=== PATIENT | female | born 1990 | race Caucasian/White ===

== ENCOUNTER → 2019-08-23 10:16 | Outpatient (BNVA) | payer SELFPAY | PROVIDERS: PCP Registered Nurse; Visit Provider Nurse Practitioner Family | DX: F41.9 Anxiety disorder, unspecified (principal); I10 Essential (primary) hypertension; E11.65 Type 2 diabetes mellitus with hyperglycemia; E78.2 Mixed hyperlipidemia | CPT/HCPCS: 80048; 80061; 82044; 83036 ==

== ENCOUNTER → 2019-08-28 11:14 | Outpatient (BNVA) | payer SELFPAY | PROVIDERS: PCP Registered Nurse; Visit Provider Nurse Practitioner Family | DX: Z34.90 Encounter for supervision of normal pregnancy, unspecified, unspecified trimester (principal); Z3A.01 Less than 8 weeks gestation of pregnancy | CPT/HCPCS: 81025 ==

== ENCOUNTER 2019-09-06 13:05 | Emergency (ER) | payer SELFPAY ==
[2019-09-06 13:16] VITALS: BP 200/147; PULSE 138; RESP 18; TEMP 37.3; O2SAT 94; BMI 49.2
[2019-09-06 13:43] VITALS: O2SAT 98
--- NOTE | 2019-09-06 13:48 | US_ITS ---
WS: [id number] EARLY OBSTETRICAL ULTRASOUND (<14 WEEKS). HISTORY: vaginal bleeding COMPARISON: None available. Extremely limited evaluation of the uterus and the endometrium and adnexa predominantly due to body h abitus. Uterus is anteverted. No intrauterine gestation is identified. No gestational sac. No adnexal masses or free fluid. US/US OB <=14 wk fetus w transvag IMPRESSION: 1. Extremely limited evaluation of the uterus and adnexal structures. 2. No intrauterine gestation is identified. No ectopic is identified. 3. Recommend serial correlation with beta hCG levels and possible ultrasound i f necessary to exclude ectopic. Differential includes complete spontaneous abor tion, ectopic or too early to visualize.
--- NOTE | 2019-09-06 13:55 | ED_ITS ---
HPI - Abdominal Pain General: Chief Complaint: Abdominal Pain Stated Complaint: cramping Time Seen by Provider: 09/06/19 13:48 Source: patient Mode of arrival: ambulatory Limitations: no limitations History of Present Illness: HPI narrative: Patient comes in with some low back pain. Patient is concerned due to some spotting she had approximately 3 days ago and then again this morning. Patient is approximately 7 weeks . Patient appears well. Patient appears in no acute distress. Patient reports previous history of 3 miscarriages. Patient has had 2 live births. Patient reports history of anxiety and hypertension. Review of Systems General: Reports: 10 or more systems reviewed and unremarkable except in HPI and below Musc: Reports: back pain PFSH ED PFSH: Statuses (acute, chronic, etc) shown below reflect problem list status as previously entered and may not be historically accurate Social History Smoking and tobacco status: never smoked Household members: spouse Female Reproductive History: : 5 Physical Exam Const: COMMON NORMALS: no apparent distress and oriented x3 GENERAL APPEARANCE: cooperative HENMT: COMMON NORMALS: normocephalic, external ears normal, EAC's normal, TM's normal bilaterally and external nose normal HEAD & SCALP: normal to inspection and normocephalic FACE & SINUS: normal facial exam NOSE: external nose normal GENERAL EAR: hearing not grossly impaired EXTERNAL EAR: Yes external ears normal EXTERNAL AUDITORY CANAL: EAC's normal TYMPANIC MEMBRANE: TM's normal bilaterally MOUTH: oral and palatal mucosa normal THROAT: posterior oropharynx normal Eye: COMMON NORMALS: PERRL and EOMs intact bilaterally PUPIL: Yes PERRL Neck/C-Spine: COMMON NORMALS: full ROM and no lymphadenopathy Lymph: LYMPHATIC: no lymphedema noted Chest: COMMONS NORMALS: inspection of chest normal and palpation of chest normal Resp: COMMON NORMALS: normal respiratory effort and clear to auscultation b ilaterally AUSCULTATION: clear to auscultation bilaterally Cardio: COMMON NORMALS: regular rate and regular rhythm RATE: regular rate RHYTHM: regular rhythm GI: COMMON NORMALS: normal to inspection, nondistended, normoactive bowel sounds and non-tender : COMMON NORMALS: Yes no CVA tenderness BLADDER/KIDNEY EXAM: Yes no CVA tenderness Back/Pelvis: COMMON NORMALS: no CVA tenderness LUMBAR SPINE/LOWER BACK: Yes paraspinal muscle tenderness Extremity: COMMON NORMALS: normal to inspection GENERAL: No edema Neuro: COMMON NORMALS: oriented x3, moves all extremities and no focal motor deficits Psych: COMMON NORMALS: mental status grossly normal and cooperative Skin: COMMON NORMALS: no rashes or lesions noted GENERAL SKIN EXAM: no rashes or lesions noted Course Vital Signs: Vital signs: Vital Signs Temperature 99.1 F 09/06/19 13:16 Pulse Rate 138 H 09/06/19 13:16 Respiratory Rate 18 09/06/19 13:16 Blood Pressure 200/147 09/06/19 13:16 Pulse Oximetry 98 09/06/19 13:43 MDM - Abdominal Pain MDM Narrative: Medical decision making narrative: Patient comes in today with complaints of low back pain and vaginal spotting. Patient appears well. Patient's abdomen is soft and nontender. Patient has no CVA tenderness. Or even lungs are clear to auscultation. Skin is warm and dry. Vital signs are stable except for some elevation in the blood pressure. Patient is 7 weeks . Differential diagnosis includes uncontrolled hypertension, UTI, threatened miscarriage, spontaneous miscarriage. Laboratory values indicated urine that was contaminated with red blood cells. Ultrasound noted no intrauterine or ectopic . hCG level was 700. Rh typing was a positive. Reviewed exam and discussed the likelihood of a miscarriage with recommendations for further treatment and evaluation with primary care in 3 to 5 days. Patient reported understanding as this was not her first miscarriage but she does have 2 live births at home that she has very gracious for. Patient reports understanding of care plan and need for follow-up or return to the ER. Lab Data: Labs: Lab Results 09/06/19 09/06/19 09/06/19 Range/Units 13:31 13:31 13:50 WBC 7.7 (4.0-10.0) 10^3/ uL RBC 4.76 (4.1-5.3) 10^6/u L Hgb 11.2 L (11.5-15.3) g/dL Hct 36.0 L (37.0-47.0) % MCV 75.6 L (81-99) fL MCH 23.5 L (28.0-34.0) pg MCHC 31.1 (30.0-36.0) g/dL RDW 15.2 H (12.1-15.1) % Plt Count 266 (130-400) 10^3/c mm MPV 9.2 (7.4-10.4) fL Neut % (Auto) 66.5 % Lymph % (Auto) 26.2 % [place] % (Auto) 5.1 % Eos % (Auto) 1.3 % Baso % (Auto) 0.5 % Neut # (Auto) 5.1 (1.8-7.7) 10^3/u L Lymph # (Auto) 2.0 (0.8-4.8) 10^3/u L [place] # (Auto) 0.4 (0.2-0.9) 10^3/u L Eos # (Auto) 0.1 (0.0-0.8) 10^3/u L Baso # (Auto) 0.0 (0.0-0.1) 10^3/u L Nucleated RBC % (a uto) 0 % Nucleated RBCs # 0.0 /100WBC Sodium (136-145) mmol/L Potassium (3.5-5.1) mmol/L Chloride (98-107) mmol/L Carbon Dioxide (22-29) mmol/L Anion Gap (5-19) BUN (6-20) mg/dL Creatinine (0.5-0.9) mg/dL GFR Calculation (90-130) mL/min Glucose (74-109) mg/dL Calcium (8.5-10.5) mg/dL Total Bilirubin (0.15-1.2) mg/dL AST (0-32) U/L ALT (0-33) U/L Alkaline Phosphata se (35-105) IU/L Total Protein (6.6-8.7) g/dL Albumin (3.5-5.2) g/dL Globulin (1.3-4.6) g/dL Ser , Keily i-Qnt mIU/mL Urine Color Cancelled Yellow Urine Appearance Cancelled Sl hazy Urine pH Cancelled 5 Ur Specific Gravit y Cancelled 1.020 Urine Protein Cancelled Neg Urine Glucose (UA) Cancelled 2+ Urine Ketones Cancelled 2+ H Urine Occult Blood Cancelled 2+ H Urine Nitrate Cancelled Negative Urine Bilirubin Cancelled 1+ H Prot Sulfosalicyli c Acd Cancelled Urine Urobilinogen Cancelled 1 H Ur Leukocyte Edda ase Cancelled Negative Urine RBC 5-10 H (0-2) /hpf Urine WBC 10-15 H (0-5) /hpf Ur Squamous Epith Cells 15-25 H (0-5) Amorphous Sediment Trace Urine Bacteria 1+ H (NONE) Hyaline Casts Rare Urine Mucus 1+ Blood Type 09/06/19 09/06/19 Range/Units 13:50 13:50 WBC (4.0-10.0) 10^3/ uL RBC (4.1-5.3) 10^6/u L Hgb (11.5-15.3) g/dL Hct (37.0-47.0) % MCV (81-99) fL MCH (28.0-34.0) pg MCHC (30.0-36.0) g/dL RDW (12.1-15.1) % Plt Count (130-400) 10^3/c mm MPV (7.4-10.4) fL Neut % (Auto) % Lymph % (Auto) % [place] % (Auto) % Eos % (Auto) % Baso % (Auto) % Neut # (Auto) (1.8-7.7) 10^3/u L Lymph # (Auto) (0.8-4.8) 10^3/u L [place] # (Auto) (0.2-0.9) 10^3/u L Eos # (Auto) (0.0-0.8) 10^3/u L Baso # (Auto) (0.0-0.1) 10^3/u L Nucleated RBC % (a uto) % Nucleated RBCs # /100WBC Sodium 134 L (136-145) mmol/L Potassium 3.5 (3.5-5.1) mmol/L Chloride 98 (98-107) mmol/L Carbon Dioxide 20 L (22-29) mmol/L Anion Gap 19.5 H (5-19) BUN 10 (6-20) mg/dL Creatinine 0.5 (0.5-0.9) mg/dL GFR Calculation 144.9 H (90-130) mL/min Glucose 266 H (74-109) mg/dL Calcium 9.5 (8.5-10.5) mg/dL Total Bilirubin 0.2 (0.15-1.2) mg/dL AST 38 H (0-32) U/L ALT 32 (0-33) U/L Alkaline Phosphata se 67 (35-105) IU/L Total Protein 6.7 (6.6-8.7) g/dL Albumin 4.6 (3.5-5.2) g/dL Globulin 2.1 (1.3-4.6) g/dL Ser , [place] i-Qnt 728.80 mIU/mL Urine Color Urine Appearance Urine pH Ur Specific Gravit y Urine Protein Urine Glucose (UA) Urine Ketones Urine Occult Blood Urine Nitrate Urine Bilirubin Prot Sulfosalicyli c Acd Urine Urobilinogen Ur Leukocyte Edda ase Urine RBC (0-2) /hpf Urine WBC (0-5) /hpf Ur Squamous Epith Cells (0-5) Amorphous Sediment Urine Bacteria (NONE) Hyaline Casts Urine Mucus Blood Type A Positive Discharge Plan Discharge Patient Disposition: Home, Self-Care Clinical Impression: Miscarriage Condition: Stable Prescriptions: New hydrocodone-acetaminophen 5-325 mg tablet 1 tab PO Q6H PRN (Reason: pain) Qty: 7 RF: 0 No Action metformin 500 mg tablet 500 mg PO DAILY Qty: 30 RF: 1 lisinopril 20 mg Tablet 20 mg PO DAILY RF: 0 Prozac 20 mg Capsule 20 mg PO BID RF: 0 prenat.vits,zenon,wxa-ymld-nhgen Tablet 1 tab PO DAILY RF: 0 Discharge Orders: Discharge Order (Routine); Ordered 09/06/19 Ordered By: Denton Noel Referrals: Monika Marinelli FNP [Primary Care Provider] - Discharge Diet: Usual diet Discharge Activity: Resume usual activity Patient Instructions: Spontaneous Miscarriage (ED) Activity Restrictions/Additional Instructions: Drink plenty of fluids Light activity Return to ER for high fever, bleeding through more than 1 pad in thirty minutes Follow-up with primary care in one week for recheck on Lab Coding Level of Care Code ED 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
[2019-09-06 14:02] LABS: Basophils % 0.5 %; Eosinophils # 0.1 10^3/uL (0.0-0.8); Eosinophils % 1.3 %; Hemoglobin 11.2 g/dL (11.5-15.3); Lymphocytes % 26.2 %; Mean Corpuscular HGB Conc 31.1 g/dL (30.0-36.0); Mean Corpuscular Hemoglobin 23.5 pg (28.0-34.0); Mean Corpuscular Volume 75.6 fL (81-99); Mean Platelet Volume 9.2 fL (7.4-10.4); Monocytes # 0.4 10^3/uL (0.2-0.9); Monocytes % 5.1 %; Neutrophils # 5.1 10^3/uL (1.8-7.7); Neutrophils % 66.5 %; Nucleated Red Blood Cells % 0 %; Platelet Count 266 10^3/cmm (130-400); Red Blood Count 4.76 10^6/uL (4.1-5.3); Red Cell Distribution Width 15.2 % (12.1-15.1); White Blood Count 7.7 10^3/uL (4.0-10.0)
[2019-09-06 14:36] LABS: Alanine Aminotransferase 32 U/L (0-33); Albumin Level 4.6 g/dL (3.5-5.2); Alkaline Phosphatase 67 IU/L (35-105); Anion Gap 19.5 (5-19); Aspartate Amino Transferase 38 U/L (0-32); Blood Urea Nitrogen 10 mg/dL (6-20); Calcium 9.5 mg/dL (8.5-10.5); Carbon Dioxide 20 mmol/L (22-29); Chloride 98 mmol/L (98-107); Globulin 2.1 g/dL (1.3-4.6); Glomerular Filtration Rate 144.9 mL/min (90-130); Glucose 266 mg/dL (74-109); Potassium 3.5 mmol/L (3.5-5.1); Sodium 134 mmol/L (136-145); Total Bilirubin 0.2 mg/dL (0.15-1.2); Total Protein 6.7 g/dL (6.6-8.7)
[2019-09-06 14:49] LABS: Bilirubin Urine 1+ (NEGATIVE); Blood Urine 2+ (Negative); Glucose Urine UA 2+ (Normal); Ketones Urine 2+ (Negative); Leukocyte Esterase Urine Negative (Negative); Nitrate Urine Negative (Negative); Protein Urine Neg (Negative); Urine Appearance SL Hazy (CLEAR); Urine Color Yellow (Yellow); Urobilinogen Urine 1 mg/dL (Negative); pH Urine 5 (5-7)
[2019-09-06 14:52] LABS: Hyaline Casts Urine RARE; Mucus Urine 1+
[2019-09-06] MEDS: morphine 4 mg/mL SDV 1 mL 2 MG IVP (14:52)
[2019-09-06] MEDS: ondansetron 2 mg/ML SDV 2 mL 4 MG IVP (14:52)
[2019-09-06 14:53] LABS: Amorphous Sediment Urine TRACE; Bacteria Urine 1+
[2019-09-06 14:54] LABS: Add Urine Culture? No; Squamous Epithelial Cell Urine 15-25 (0-5)
[2019-09-06 16:10] VITALS: BP 153/103; PULSE 109; RESP 16; O2SAT 97
== END 2019-09-06 16:10 | disposition home or self-care (01) ==
PROVIDERS: Emergency Provider Nurse Practitioner Family; PCP Registered Nurse
DX: O03.9 Complete or unspecified spontaneous abortion without complication (principal)
CPT/HCPCS: 76801; 76817; 80053; 81001; 84702; 85025; 86900; 96374; 99283; A9270; J2270; J2405

== ENCOUNTER → 2019-09-12 10:13 | Outpatient (BNVA) | payer SELFPAY | PROVIDERS: PCP Registered Nurse; Visit Provider Nurse Practitioner Family | DX: O03.9 Complete or unspecified spontaneous abortion without complication (principal) | CPT/HCPCS: 36415; 84702 ==

== ENCOUNTER → 2019-10-30 09:42 | Outpatient (BNVA) | payer SELFPAY | PROVIDERS: PCP Registered Nurse; Visit Provider Registered Nurse | DX: I10 Essential (primary) hypertension (principal); F43.23 Adjustment disorder with mixed anxiety and depressed mood; E11.65 Type 2 diabetes mellitus with hyperglycemia; E66.01 Morbid (severe) obesity due to excess calories; Z68.42 Body mass index [BMI] 45.0-49.9, adult | CPT/HCPCS: 80053; 83036; 85025 ==

== ENCOUNTER → 2019-11-29 10:27 | Outpatient (BNVA) | payer SELFPAY | PROVIDERS: PCP Registered Nurse; Visit Provider Nurse Practitioner Family | DX: N92.6 Irregular menstruation, unspecified (principal) | CPT/HCPCS: 81025; 84702 ==

== ENCOUNTER → 2020-02-17 10:44 | Outpatient (BNVA) | payer SELFPAY | PROVIDERS: PCP Registered Nurse; Visit Provider Registered Nurse | DX: E11.65 Type 2 diabetes mellitus with hyperglycemia (principal); F33.2 Major depressive disorder, recurrent severe without psychotic features | CPT/HCPCS: 83036 ==

== ENCOUNTER → 2020-06-10 12:58 | Outpatient (BNVA) | payer MEDICAID, SELFPAY | PROVIDERS: PCP Registered Nurse; Visit Provider Obstetrics & Gynecology | DX: Z34.90 Encounter for supervision of normal pregnancy, unspecified, unspecified trimester (principal) | CPT/HCPCS: 81000; 81025; 83036; 84443; 84702; 86850; 86900 ==

== ENCOUNTER → 2020-06-15 11:26 | Outpatient (BNVA) | payer SELFPAY | PROVIDERS: PCP Registered Nurse; Visit Provider Obstetrics & Gynecology | DX: Z34.90 Encounter for supervision of normal pregnancy, unspecified, unspecified trimester (principal) | CPT/HCPCS: 81000 ==

== ENCOUNTER → 2020-06-22 11:47 | Outpatient (BNVA) | payer SELFPAY | PROVIDERS: PCP Registered Nurse; Visit Provider Obstetrics & Gynecology | DX: O09.891 Supervision of other high risk pregnancies, first trimester (principal); Z3A.00 Weeks of gestation of pregnancy not specified | CPT/HCPCS: 81000 ==

== ENCOUNTER → 2020-06-24 13:10 | Outpatient (BNVA) | payer MEDICAID, SELFPAY | PROVIDERS: PCP Registered Nurse; Visit Provider Nurse Practitioner Women's Health | DX: Z34.90 Encounter for supervision of normal pregnancy, unspecified, unspecified trimester (principal) | CPT/HCPCS: 80053; 81000 ==

== ENCOUNTER → 2020-07-01 14:24 | Outpatient (BNVA) | payer SELFPAY | PROVIDERS: PCP Registered Nurse; Visit Provider Obstetrics & Gynecology | DX: Z34.90 Encounter for supervision of normal pregnancy, unspecified, unspecified trimester (principal) | CPT/HCPCS: 81000 ==

== ENCOUNTER → 2020-07-07 14:19 | Outpatient (BNVA) | payer MEDICAID, SELFPAY | PROVIDERS: PCP Registered Nurse; Visit Provider Obstetrics & Gynecology | DX: O09.891 Supervision of other high risk pregnancies, first trimester (principal); O10.011 Pre-existing essential hypertension complicating pregnancy, first trimester; O24.111 Pre-existing type 2 diabetes mellitus, in pregnancy, first trimester; E11.9 Type 2 diabetes mellitus without complications; O98.819 Other maternal infectious and parasitic diseases complicating pregnancy, unspecified trimester; Z3A.00 Weeks of gestation of pregnancy not specified | CPT/HCPCS: 80307; 81000; 82570; 84156; 85027; 86592; 86762; 86803; 86850; 86900; 87086; 87340; 87806 ==

== ENCOUNTER → 2020-07-15 14:23 | Outpatient (BNVA) | payer MEDICAID, SELFPAY | PROVIDERS: PCP Registered Nurse; Visit Provider Obstetrics & Gynecology | DX: O24.111 Pre-existing type 2 diabetes mellitus, in pregnancy, first trimester (principal); Z3A.00 Weeks of gestation of pregnancy not specified | CPT/HCPCS: 81000 ==

== ENCOUNTER → 2020-07-22 15:01 | Outpatient (BNVA) | payer MEDICAID, SELFPAY | PROVIDERS: PCP Registered Nurse; Visit Provider Obstetrics & Gynecology | DX: O24.111 Pre-existing type 2 diabetes mellitus, in pregnancy, first trimester (principal); E11.9 Type 2 diabetes mellitus without complications; O09.891 Supervision of other high risk pregnancies, first trimester; Z3A.00 Weeks of gestation of pregnancy not specified | CPT/HCPCS: 81000; 87491; 87591; 88175 ==

== ENCOUNTER → 2020-07-31 10:11 | Outpatient (BNVA) | payer MEDICAID, SELFPAY | PROVIDERS: PCP Registered Nurse; Visit Provider Obstetrics & Gynecology | DX: O09.891 Supervision of other high risk pregnancies, first trimester (principal); O24.111 Pre-existing type 2 diabetes mellitus, in pregnancy, first trimester; E11.9 Type 2 diabetes mellitus without complications; O10.011 Pre-existing essential hypertension complicating pregnancy, first trimester; Z3A.00 Weeks of gestation of pregnancy not specified | CPT/HCPCS: 81000 ==

== ENCOUNTER → 2020-08-04 11:41 | Outpatient (BNVA) | payer MEDICAID, SELFPAY | PROVIDERS: PCP Registered Nurse; Visit Provider Obstetrics & Gynecology | DX: O24.111 Pre-existing type 2 diabetes mellitus, in pregnancy, first trimester (principal); E11.9 Type 2 diabetes mellitus without complications; O10.011 Pre-existing essential hypertension complicating pregnancy, first trimester; Z3A.00 Weeks of gestation of pregnancy not specified | CPT/HCPCS: 81000; 87491; 87591 ==

== ENCOUNTER → 2020-08-13 10:41 | Outpatient (BNVA) | payer MEDICAID, SELFPAY | PROVIDERS: PCP Registered Nurse; Visit Provider Obstetrics & Gynecology | DX: O24.112 Pre-existing type 2 diabetes mellitus, in pregnancy, second trimester (principal) | CPT/HCPCS: 81000 ==

== ENCOUNTER 2020-08-18 12:29 | Outpatient (CLI) | payer BC, SELFPAY ==
--- NOTE | 2020-08-18 12:52 | ECG_ITS ---
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
== END 2020-08-18 12:30 | disposition home or self-care (01) ==
LOC: RT 12:35
PROVIDERS: PCP Registered Nurse; Visit Provider Obstetrics & Gynecology
DX: O24.111 Pre-existing type 2 diabetes mellitus, in pregnancy, first trimester (principal)
CPT/HCPCS: 93005

== ENCOUNTER → 2020-08-24 15:19 | Outpatient (BNVA) | payer BC, MEDICAID, SELFPAY | PROVIDERS: PCP Registered Nurse; Visit Provider Obstetrics & Gynecology | DX: Z34.90 Encounter for supervision of normal pregnancy, unspecified, unspecified trimester (principal) | CPT/HCPCS: 81000 ==

== ENCOUNTER → 2020-09-03 14:19 | Outpatient (BNVA) | payer BC, MEDICAID, SELFPAY | PROVIDERS: PCP Registered Nurse; Visit Provider Obstetrics & Gynecology | DX: O24.112 Pre-existing type 2 diabetes mellitus, in pregnancy, second trimester (principal); Z3A.00 Weeks of gestation of pregnancy not specified | CPT/HCPCS: 81000; 83036 ==

== ENCOUNTER → 2020-09-17 14:41 | Outpatient (BNVA) | payer BC, MEDICAID, SELFPAY | PROVIDERS: PCP Registered Nurse; Visit Provider Obstetrics & Gynecology | DX: Z34.90 Encounter for supervision of normal pregnancy, unspecified, unspecified trimester (principal) | CPT/HCPCS: 81000 ==

== ENCOUNTER → 2020-10-05 15:46 | Outpatient (BNVA) | payer BC, MEDICAID, SELFPAY | PROVIDERS: PCP Registered Nurse; Visit Provider Obstetrics & Gynecology | DX: O24.112 Pre-existing type 2 diabetes mellitus, in pregnancy, second trimester (principal); O10.012 Pre-existing essential hypertension complicating pregnancy, second trimester; Z3A.00 Weeks of gestation of pregnancy not specified | CPT/HCPCS: 81000 ==

== ENCOUNTER → 2020-10-19 15:01 | Outpatient (BNVA) | payer BC, MEDICAID, SELFPAY | PROVIDERS: PCP Registered Nurse; Visit Provider Obstetrics & Gynecology | DX: Z34.90 Encounter for supervision of normal pregnancy, unspecified, unspecified trimester (principal) | CPT/HCPCS: 81000 ==

== ENCOUNTER → 2020-11-19 07:55 | Outpatient (BNVA) | payer BC, MEDICAID, SELFPAY | PROVIDERS: PCP Registered Nurse; Visit Provider Obstetrics & Gynecology | DX: O09.893 Supervision of other high risk pregnancies, third trimester (principal) | CPT/HCPCS: 81000; 85027 ==

== ENCOUNTER 2020-11-28 20:58 | Observation (INO) | payer BC, MEDICAID, SELFPAY ==
[2020-11-28] VITALS (57 sets, daily range): BP systolic 127–178; BP diastolic 68–99; PULSE 110–137; RESP 16; TEMP 36.8; O2SAT 97–99; BMI 52.3
[2020-11-28 18:57] LABS: Add Urine Microscopic? NO; Charge for UA Resulting for Rev
[2020-11-28 18:59] LABS: Basophils % 0.4 %; Eosinophils # 0.1 10^3/uL (0.0-0.8); Eosinophils % 1.1 %; Hematocrit 35.5 % (37.0-47.0); Hemoglobin 11.8 g/dL (11.5-15.3); Lymphocytes # 1.9 10^3/uL (0.8-4.8); Lymphocytes % 22.9 %; Mean Corpuscular HGB Conc 33.2 g/dL (30.0-36.0); Mean Corpuscular Hemoglobin 26.3 pg (28.0-34.0); Mean Corpuscular Volume 79.2 fL (81-99); Mean Platelet Volume 10.1 fL (7.4-10.4); Monocytes # 0.5 10^3/uL (0.2-0.9); Monocytes % 6.1 %; Neutrophils # 5.61 10^3/uL (1.8-7.7); Neutrophils % 69.3 %; Nucleated Red Blood Cells % 0 %; Platelet Count 224 10^3/cmm (130-400); Red Blood Count 4.48 10^6/uL (4.1-5.3); Red Cell Distribution Width 13.2 % (12.1-15.1); White Blood Count 8.1 10^3/uL (4.0-10.0)
[2020-11-28 19:04] LABS: Bilirubin Urine Neg (Negative); Blood Urine Neg (Negative); Glucose Urine UA Norm (Normal); Ketones Urine 2+ (Negative); Leukocyte Esterase Urine Negative (Negative); Nitrate Urine Negative (Negative); Protein Urine Neg (Negative); Urine Appearance Clear (CLEAR); Urine Color Yellow (Yellow); Urobilinogen Urine Norm (Negative); pH Urine 6 (5-7)
[2020-11-28 19:25] LABS: Alanine Aminotransferase 7 U/L (0-33); Albumin Level 3.4 g/dL (3.5-5.2); Alkaline Phosphatase 80 IU/L (35-105); Anion Gap 18.7 (5-19); Aspartate Amino Transferase 14 U/L (0-32); Blood Urea Nitrogen 4 mg/dL (6-20); Calcium 8.9 mg/dL (8.5-10.5); Carbon Dioxide 17 mmol/L (22-29); Chloride 103 mmol/L (98-107); Globulin 3.1 g/dL (1.3-4.6); Glomerular Filtration Rate 186.2 mL/min (90-130); Glucose 141 mg/dL (65-115); Osmolality Calculated 279 mOsm/kg (285-295); Potassium 3.7 mmol/L (3.5-5.1); Sodium 135 mmol/L (136-145); Total Bilirubin 0.3 mg/dL (0.15-1.2); Total Protein 6.5 g/dL (6.6-8.7); Uric Acid 3.4 mg/dL (2.4-5.7)
[2020-11-28 20:11] LABS: UPRO/UCREAT Ratio 0.14 mg/mg CR; Urine Creatinine 80 mg/dL (28-217); Urine Protein Random 11 mg/dL
[2020-11-28] MEDS: sodium chloride 0.9% 1,000 ML 999 ML IV (20:31)
[2020-11-28] MEDS: BuSPIRONE 10 mg Tablet 5 MG PO (22:01)
[2020-11-28] MEDS: hyDROXYzine 25 mg Capsule PO (22:01)
[2020-11-28] MEDS: NIFEdipine 10 mg Capsule 20 MG PO (22:13)
[2020-11-29] VITALS (125 sets, daily range): BP systolic 119–174; BP diastolic 58–100; PULSE 93–130; RESP 16–18; TEMP 36.2; O2SAT 91–100
[2020-11-29] MEDS: morphine 4 mg/mL SDV 1 mL 8 MG IM (00:36)
[2020-11-29 00:47] LABS: Glucose Point of Care 108 mg/dL (70-110)
[2020-11-29 06:52] LABS: Anion Gap 16.9 (5-19); Blood Urea Nitrogen 6 mg/dL (6-20); Calcium 8.4 mg/dL (8.5-10.5); Carbon Dioxide 19 mmol/L (22-29); Chloride 105 mmol/L (98-107); Glomerular Filtration Rate 186.2 mL/min (90-130); Glucose 107 mg/dL (65-115); Osmolality Calculated 282 mOsm/kg (285-295); Potassium 3.9 mmol/L (3.5-5.1); Sodium 137 mmol/L (136-145)
[2020-11-29 07:00] LABS: Blood Urine 2+ (Negative); Glucose Urine UA Norm (Normal); Ketones Urine 2+ (Negative); Nitrate Urine Negative (Negative); Protein Urine Neg (Negative); Urine Appearance Clear (CLEAR); Urine Color Dark Yellow (Yellow); pH Urine 5 (5-7)
[2020-11-29 07:01] LABS: Add Urine Microscopic? YES; Bacteria Urine 1+ /hpf; Bilirubin Urine 1+ (Negative); Leukocyte Esterase Urine Negative (Negative); RBC Urine RARE /hpf (0-2); Urobilinogen Urine 1 mg/dL (Negative); WBC Urine 0-4 /hpf (0-5)
[2020-11-29 07:03] LABS: Add Urine Culture? No; Mucus Urine 2+ /hpf
[2020-11-29] MEDS: NIFEdipine 10 mg Capsule 20 MG PO (07:20)
[2020-11-29] MEDS: hyDROXYzine 25 mg Capsule PO (07:23)
[2020-11-29] MEDS: betamethasone susp 6 mg/mL 5 mL 12 MG IM (07:23)
[2020-11-29] MEDS: sodium chloride 0.9% 1,000 ML 999 ML IV (07:23)
[2020-11-29 08:05] LABS: Glucose Point of Care 132 mg/dL (70-110)
[2020-11-29] MEDS: dextrose 5%-sod chloride 0.45% 1,000 ML 125 ML IV (09:05)
[2020-11-29] MEDS: magnesium sulfate premix 20 GM/500 ML BAG IV (10:05)
[2020-11-29] MEDS: magnesium sulfate premix 4 GM/100 ML PREMIX IV (10:05)
--- NOTE | 2020-11-29 10:49 | P.HP_ITS ---
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 Patient presented to labor and delivery at 17:54 on 11/28/2020 complaining of elevated blood pressure and not feeling well. She was initially found to have elevated blood pressure of 178/93. She was also found to be kristin about every 3 to 4 minutes. Blood pressures decreased on their own following admission. She continued to contract and was initially given a fluid bolus and then treated with oral Procardia. Contractions slowed to about 5 to 6 minutes apart, but continued through the night. This morning, patient reports contractions are feeling a little stronger again. She reports movement. She has noticed a little spotting. She denies headaches. She denied leaking of fluid. care has been mainly provided by Dr. Kee Márquez at [facility]. Dr. Bullard at [facility] has been managing her diabetes. Her care has been complicated by type 2 diabet es, chronic hypertension, depression and anxiety, and obesity. She has had 1 prior sections and is planning a repeat section. She is also considering tubal ligation. Medicaid consent form had been signed on 11/19/2020. LABS 06/10/2020 Blood type: A+ Antibody screen: Negative A1c: 8.3 TSH: 2.11 Qant HC 07/07/2020 Intake CBC: WBC 11.4, Hgb 12.2, Hct 38.4, MCV 80.0, Plt 316. Rubella: Immune (73) Hepatitis B surface antigen: Nonreactive Hepatitis C antibody: Nonreactive RPR: Nonreactive HIV: Nonreactive Cystic fibrosis screen: Declined Panorama: Declined Urine drug screen: Negative Urine culture: 10,000-20,000 cols/ml, mixed sol 24-hour urine: TP: 97 mg, TV: 1700 ml, Cr Cl: 165 ml/min 07/22/2020 Pap smear: Negative for intraepithelial lesion or malignancy. 08/04/2020 Gonorrhea: Negative Chlamydia: Negative. 08/24/2020 Quad screen: Declined. 09/03/2020 A1C: 7.5 11/19/2020 28 week CBC: WBC 7.3, Hgb 11.5, Hct 35.6, MCV 81.7, Plt 218 OB ULTRASOUND LMP 04/28/2020 ---> EDC 02/02/2021 1. 06/24/2020 ---> 7-4/7 WG ---> EDC 02/06/2021. Consistent with dates. Performed at [facility]. CRL 1.3 cm. FHR 157 bpm. 2. 07/07/2020 ---> 9-5/7 WG ---> EDC 02/04/2021. Consistent with dates. Performed at [facility]. CRL 2.8 cm. FHR 174 bpm 3. 10/08/2020 ---> 23-4/7 WG ---> EDC 01/31/2021. EFW 1 lb 6 oz (612 g). Performed at [facility] in [place], [place]. Consistent with dates Normal anatomic survey EXCEPT for poor visualization of four-chamber view and extremities. Male. Breech. FHR 151 bpm. Anterior placenta without previa. Grade 1. MVP 7.4 cm. 4. 11/04/2020 ---> 28-5/7 WG ---> EDC 01/22/2021. EFW 2 lbs 14 oz (1315 g) 90%. Performed at [facility] in [place], [place]. LGA fetus. Incomplete echo due to position and maternal body habitus. Breech. FHR 153 bpm. Anterior placenta without previa. Grade 1. DANNY 24.6 cm. MVP 9.3 cm. Review of Systems Const: Denies: fever(s) or chills Eyes: Denies: change in vision ENMT: Denies: throat pain or nasal congestion Card: Denies: chest pain, palpitations, swelling of feet/ankles or lightheadedness Resp: Denies: dyspnea, productive cough, non-productive cough or wheezing GI: Reports: abdominal pain (Related to contractions); Denies: nausea, vomiting, diarrhea or constipation : Reports: urinary frequency; Denies: dysuria, vaginal bleeding, vaginal discharge or other (Leaking of fluid) Musc: Reports: back pain Neuro: Denies: headache(s), dizziness or seizure-like activity Psych: Reports: anxiety (On medications); Denies: depression Endo: Denies: cold intolerance or heat intolerance Yash/Lymph: Denies: easy bruising or easy bleeding Medications/Allergies Home Medications Medication Instructions Recorded Confirmed Last Taken Type prenat.vits,zenon,wep-dhrp-xpdte 1 tab PO DAILY 09/06/19 11/28/20 11/28/20 10:00 History 1 tab insulin syringe,safetyneedle 0.3 #500 each 06/15/20 11/29/20 Unknown Rx mL 30 x 12/27 meclizine 12.5 mg chewable tablet 12.5 mg PO ONCE PRN 06/15/20 11/28/20 11/28/20 08:00 History 12.5 mg insulin detemir U-100 100 unit/mL 80 unit SUBCUT BID #5 vial 10/05/20 11/28/20 11/27/20 18:00 Rx subcutaneous solution 80 units buspirone 5 mg tablet 5 mg PO BID #60 tab 11/19/20 11/28/20 11/28/20 10:00 Rx 5 mg hydroxyzine pamoate 25 mg capsule 25 mg PO QID PRN #60 cap 11/19/20 11/28/20 11/28/20 10:00 Rx 25 mg Novolog U-100 Insulin aspart See Rx Instructions .ROUTE .COMPLEX 11/28/20 11/28/20 11/27/20 18:00 History 18 units Allergies Allergy/AdvReac Type Severity Reaction Status Date / Time shrimp Allergy swelling Verified 11/19/20 07:54 PFS 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 Performed by Dr. Sanchez at [facility] in [place], [place]. Confirmed LTCS with 2 layer closure. Family History Mother Diabetes Sister Family history of thyroid problem Father Hypertension Family/Other Breast cancer Maternal Great Aunt---dx age 72 Social History (Updated 11/29/20 @ 11:04 by Kee Márquez MD) Smoking and tobacco status: former smoker Quit status (tobacco): has quit using tobacco Alcohol intake: former Substance/Drug Use: never Other Female Reproductive History: Hx Age of Menarche: 11 History History History 8 Term 0 Miscarriages/Ectopic 5 2 Living Children 2 Other History: 1) 2008 - Early miscarriage. 2) 07/28/2010. Male, 5 lbs 14 oz, 35 weeks. Epidural. Vaginal delivery. Delivered by Dr. Tolentino at [facility] in [place], [place]. Complicated by ROM at 35 weeks and GDM. 3) 08/16/2013. Male, 7 pounds 1 ounce, 35 weeks. Epidural. PLTCS. Performed by Dr. Sanchez at [facility] in [place], [place]. care provided by Dr. Guillen. Complicated by: labor with bradycardia resulting in , Gestational hypertension, and GDM. 4) 2019 - Early miscarriage. 5) 2019 - Early miscarriage. 6) 2020 - Early miscarriage. 7) 2020 - Early miscarriage. Care MAGGIE Calculator Estimated Delivery Date Method Current WG Current Estimate 02/02/21 LMP (Certain) 30w 5d Other Estimates 02/06/21 Ultrasound #1 30w 1d 02/04/21 Ultrasound #2 30w 3d Expected Delivery Route/Plan Desires repeat section with tubal (complete removal of tubes) Specific Issues/Plans * Type 2 diabetes on insulin * Pre-existing hypertension-not on medication * Mental disorder (depression/anxiety) controlled on fluoxetine * Grand multiparity * Obesity prepregnancy BMI 49 * Prior LTCS - confirmed. * Hx of PTL w/ PTD both at 35 weeks Vitals/I&O/Wt Last Vital Signs Temp 97.1 F L 11/29/20 10:08 Pulse 106 H 11/29/20 10:46 Resp 17 11/29/20 10:10 BP 146/86 11/29/20 10:35 Pulse Ox 99 11/29/20 10:46 11/28/20 11/29/20 11/29/20 22:59 06:59 14:59 Intake Total 1000 / 1000 1237.5 / 1237.5 Output Total 225 / 225 Balance 1000 / 1000 1012.5 / 1012.5 Weight last 48 hrs Weight 268 lb Physical Exam Const: COMMON NORMALS: no acute distress, alert and well nourished GENERAL APPEARANCE: well developed NUTRITIONAL APPEARANCE: obese ORIENTATION/CONSCIOUSNESS: Yes oriented to person, Yes oriented to place and Yes oriented to time Neck/C-Spine: COMMON NORMALS: Thyroid normal GENERAL: Yes trachea midline THYROID: Thyroid normal Lymph: LYMPHATIC: no lymphadenopathy noted (Groin) Resp: COMMON NORMALS: normal respiratory effort and clear to auscultation bilaterally AUSCULTATION: clear to auscultation bilaterally Cardio: COMMON NORMALS: regular rate, regular rhythm, No gallops present (Cardio) and No rub (Cardio) RATE: regular rate RHYTHM: regular rhythm PERIPHERAL PULSES: posterior tibial pulses present GI: COMMON NORMALS: Soft to palpation, non-tender, No hepatosplenomegaly present and no masses (Except for gravid uterus) INSPECTION: Yes Abdominal panniculus present and Yes gravid abdomen AUSCULTATION: Yes normoactive bowel sounds PALPATION: Yes Soft to palpation, Yes No hepatosplenomegaly present and No Hernia present : EXTERNAL FEMALE EXAM: No Hernia present OTHER: External genitalia: Normal in appearance with no lesions seen. Anus/perineum: No perineal lesions noted. Urethral meatus: Normal in size and location with no lesions or prolapse noted. Urethra: Nontender with no palpable masses noted. Bladder: Nontender with no palpable masses noted. Vagina: No palpable masses noted. Brownish discharge present. Cervix: Soft, anterior, loose 1 cm dilated, out of the pelvis presentation, breech. Uterus: Nontender, gravid. Adnexa: Not palpable Neuro: SENSORIUM/ORIENTATION: Yes alert, Yes oriented to person, Yes oriented to place and Yes oriented to time Psych: COMMON NORMALS: normal affect MOOD & AFFECT: Yes euthymic mood Skin: COMMON NORMALS: no rashes or lesions noted GENERAL SKIN EXAM: no rashes or lesions noted Urinary Catheter Management^: Martin Latex: Cath Placed During This Visit: yes Urinary Catheter Date of Insertion: 04/18/21 Urinary Catheter Time of Insertion: 10:32 Data : 11/28/20 18:45 11/29/20 06:15 Other Labs: 11/28/2020 CBC: WBC 8.1, hemoglobin 11.8, hematocrit 35.5, MCV 79.2, platelet 224,000 CMP: Sodium 135, potassium 3.7, chloride 103, carbon dioxide 17, BUN 4, creatinine 0.4, glucose 141, calcium 8.9, total bili 0.3, AST 14, ALT 7, alk phos 80, total protein 6.5, albumin 3.4 Uric acid: 3.4 Urinalysis: Specific gravity 1.010, protein negative, glucose negative, ketones 2+, urine blood negative, nitrate negative, leukocyte Estrace negative. Protein/Creatinine ratio: 0.14 Other data: monitoring: Baseline heart rate 130s with moderate variability and accelerations present. Accelerations do not meet criteria for reactivity. Contractions are every 5 to 6 minutes. A&P Assessment and plan (1) labor in third trimester: Patient initially presented with elevated blood pressure and not feeling well. Was found to be kristin regularly every 3 to 4 minutes. Initially treated with IV fluids and then oral Procardia. Contractions have slowed to 5 to 6 minutes but have continued. She was uneffaced and closed on presentation and is now loose 1 cm dilation and very soft cervix. Based upon this, she has made cervical change and would be classified as being in labor. I discussed with her that due to her early gestational age (30-5/7 weeks gestation today), delivery would be best done in a facility that has NICU capabilities. Questions were answered and patient agrees to transfer. Since patient has been seen through the [facility], plan is to transfer to [facility]. Patient has received her first dose of betamethasone is being started on magnesium sulfate for neuro protection. Status: Acute Qualifiers: labor delivery status: without delivery Qualified Code(s): O60.03 - labor without delivery, third trimester (2) Pre-existing essential hypertension complicating , third trimester: Patient had elevated blood pressures into the severe range on admission, but these quickly came down on their own. She has intermittently had spikes into the severe range for 1-2 blood pressures in the would drop back down again. Blood pressures for the most part have been in the normal range since starting the oral Procardia for tocolyse this. Patient was evaluated for preeclampsia and ruled out for this at this time with a protein creatinine ratio of 0.14. Status: Acute (3) Diabetes in : Patient has type 2 diabetes. Diabetes management is currently being handled by Dr. Bullard at [facility]. She is due to see him later this week. On presentation to the hospital last night, she had not had any of her insulin during the day due to not feeling well. She received a half dose (40 units) of Levemir yesterday evening. She has not had any insulin today. Status: Acute Qualifiers: Diabetes in type: pre-existing, type 2 Trimester: third trimester Qualified Code(s): O24.113 - Pre-existing type 2 diabetes mellitus, in , third trimester (4) Maternal care for unspecified type scar from previous delivery: She has had 1 prior section is planning repeat section. Status: Acute Qualifiers: Previous scar type: low transverse Qualified Code(s): O34.211 - Maternal care for low transverse scar from previous delivery (5) Mental disorder affecting : Patient has had problems with depression and anxiety. She had stopped her depression medication (fluoxetine in September). As of 11/19/2020, she has been started on buspirone 5 mg twice a day and hydroxyzine 25 mg 4 times a day as needed due to worsening anxiety. In the hospital she has received both the buspirone and hydroxyzine. Status: Acute Qualifiers: Trimester: third trimester Qualified Code(s): O99.343 - Other mental disorders complicating , third trimester (6) Obesity affecting : Status: Acute Qualifiers: Trimester: third trimester Qualified Code(s): O99.213 - Obesity complicating , third trimester (7) Contraception management: Patient had indicated that she wanted to have a sterilization performed. This had been previously discussed with her and Medicaid consent form had been signed on 11/19/2020. She was requesting complete removal of the tubes if possible. 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
--- NOTE | 2020-11-29 11:25 | P.TS_ITS ---
Transfer Summary Providers Date of Admission: 11/28/20 20:58 Date of Discharge: 11/29/20 Attending Provider at Admission: Kee Márquez MD Attending Provider at Transfer: Kee Márquez MD Primary Care Provider: CAROL Dodson Anticipated Date of Transfer: Anticipated date of transfer: 11/29/20 Receiving Facility & Provider: Receiving Provider: [] Receiving facility: [] Diagnoses at Discharge Discharge Diagnosis (1) labor in third trimester: Status: Acute Qualifiers: labor delivery status: without delivery Qualified Code(s): O60.03 - labor without delivery, third trimester (2) Pre-existing essential hypertension complicating , third trimester: Status: Acute (3) Diabetes in : Status: Acute Qualifiers: Diabetes in type: pre-existing, type 2 Trimester: third trimester Qualified Code(s): O24.113 - Pre-existing type 2 diabetes mellitus, in , third trimester (4) Maternal care for unspecified type scar from previous delivery: Status: Acute Qualifiers: Previous scar type: low transverse Qualified Code(s): O34.211 - Maternal care for low transverse scar from previous delivery (5) Mental disorder affecting : Status: Acute Qualifiers: Trimester: third trimester Qualified Code(s): O99.343 - Other mental disorders complicating , third trimester (6) Obesity affecting : Status: Acute Qualifiers: Trimester: third trimester Qualified Code(s): O99.213 - Obesity complicating , third trimester (7) Contraception management: Status: Acute Qualifiers: Contraceptive encounter type: other general counseling and advice Qualified Code(s): Z30.09 - Encounter for other general counseling and advice on contraception Reason for Visit Reason for Visit: hypertension Hospital Course Hospital Course Patient was admitted yesterday evening with labor with episodes of severe hypertension. She was initially treated with IV fluids and then started on Procardia 20 mg every 6 hours for labor. She was initially kristin every 3 to 4 minutes on admission and through the night, contractions spaced out to 5 to 6 minutes. This morning she is still kristin every 5 to 6 minutes. Through the night she has been checked multiple times. She was initially closed, but did progress to 1 cm dilation through the night. This morning she was a loose 1 cm dilation. Based upon this she has made cervical change. Patient also has had episodes of elevated blood pressures into the severe range. She does have a history of chronic hypertension, but had not required medications during the . The Procardia has helped to keep the blood pressure into the normal ranges. She was evaluated for preeclampsia and ruled out for preeclampsia at this time. Patient has type 2 diabetes and had not taken her insulin yesterday. Yesterday evening due to her not eating, she was given a half dose of her Levemir which was 40 units at that time. Sugars have been periodically checked through the night. Due to the labor, she received her first dose of betamethasone this morning at 07:20. She was started on magnesium sulfate for neuro protection this morning. Due to the labor, and potential need for early delivery, I discussed with the patient that it would be best to deliver at a facility which had ICU capability since she is only 30-5/7 weeks gestation. Since she has been managed with Dr. Bullard at [facility], patient is requesting transfer to [facility]. Dr. Larson was contacted as the laborist and he accepted transfer of care. Patient being transferred to [facility]. Physical Exam Narrative: EXAM NARRATIVE: See H&P from this morning. Urinary Catheter Management^: Martin Latex: Cath Placed During This Visit: yes Urinary Catheter Date of Insertion: 11/29/20 Urinary Catheter Time of Insertion: 10:32 TS Data Data Completed and Pending: Pending at discharge Category Date Time Status Magnesium Level ( OB Only) Q6H Lab 11/29/20 16:00 Uncollected Urine Culture Rou rula Lab 11/29/20 07:21 Received Labs from last 24 hours 11/29/20 11/29/20 11/29/20 07:58 06:15 06:15 WBC RBC Hgb Hct MCV MCH MCHC RDW Plt Count MPV Neut % (Auto) Lymph % (Auto) Walton % (Auto) Eos % (Auto) Baso % (Auto) Neut # (Auto) Lymph # (Auto) Walton # (Auto) Eos # (Auto) Baso # (Auto) Nucleated RBC % (a uto) Nucleated RBCs # Sodium 137 Potassium 3.9 Chloride 105 Carbon Dioxide 19 L Anion Gap 16.9 BUN 6 Creatinine 0.4 L GFR Calculation 186.2 H Glucose 107 POC Glucose 132 H Calculated Osmolal ity 282 L Uric Acid Calcium 8.4 L Total Bilirubin AST ALT Alkaline Phosphata se Total Protein Albumin Globulin Urine Color Dark yellow Urine Appearance Clear Urine pH 5 Ur Specific Gravit y 1.030 Urine Protein Neg Urine Glucose (UA) Norm Urine Ketones 2+ H Urine Blood 2+ H Urine Nitrate Negative Urine Bilirubin 1+ H Urine Urobilinogen 1 H Ur Leukocyte Edda ase Negative Urine RBC Rare Urine WBC 0-4 H Ur Squamous Epith Cells 5-10 H Amorphous Sediment Not Reportable Urine Bacteria 1+ H Urine Mucus 2+ U Random Total Pro tein Urine Creatinine Protein/Creatinin Ratio 11/29/20 11/28/20 11/28/20 00:35 18:45 18:15 WBC 8.1 RBC 4.48 Hgb 11.8 Hct 35.5 L MCV 79.2 L MCH 26.3 L MCHC 33.2 RDW 13.2 Plt Count 224 MPV 10.1 Neut % (Auto) 69.3 Lymph % (Auto) 22.9 Walton % (Auto) 6.1 Eos % (Auto) 1.1 Baso % (Auto) 0.4 Neut # (Auto) 5.61 Lymph # (Auto) 1.9 Walton # (Auto) 0.5 Eos # (Auto) 0.1 Baso # (Auto) 0.0 Nucleated RBC % (a uto) 0 Nucleated RBCs # 0.0 Sodium Potassium Chloride Carbon Dioxide Anion Gap BUN Creatinine GFR Calculation Glucose POC Glucose 108 Calculated Osmolal ity Uric Acid Calcium Total Bilirubin AST ALT Alkaline Phosphata se Total Protein Albumin Globulin Urine Color Urine Appearance Urine pH Ur Specific Gravit y Urine Protein Urine Glucose (UA) Urine Ketones Urine Blood Urine Nitrate Urine Bilirubin Urine Urobilinogen Ur Leukocyte Edda ase Urine RBC Urine WBC Ur Squamous Epith Cells Amorphous Sediment Urine Bacteria Urine Mucus U Random Total Pro tein 11 Urine Creatinine 80 Protein/Creatinin Ratio 0.14 11/28/20 11/28/20 18:15 18:15 WBC RBC Hgb Hct MCV MCH MCHC RDW Plt Count MPV Neut % (Auto) Lymph % (Auto) Walton % (Auto) Eos % (Auto) Baso % (Auto) Neut # (Auto) Lymph # (Auto) Walton # (Auto) Eos # (Auto) Baso # (Auto) Nucleated RBC % (a uto) Nucleated RBCs # Sodium 135 L Potassium 3.7 Chloride 103 Carbon Dioxide 17 L Anion Gap 18.7 BUN 4 L Creatinine 0.4 L GFR Calculation 186.2 H Glucose 141 H POC Glucose Calculated Osmolal ity 279 L Uric Acid 3.4 Calcium 8.9 Total Bilirubin 0.3 AST 14 ALT 7 Alkaline Phosphata se 80 Total Protein 6.5 L Albumin 3.4 L Globulin 3.1 Urine Color Yellow Urine Appearance Clear Urine pH 6 Ur Specific Gravit y 1.010 Urine Protein Neg Urine Glucose (UA) Norm Urine Ketones 2+ H Urine Blood Neg Urine Nitrate Negative Urine Bilirubin Neg Urine Urobilinogen Norm Ur Leukocyte Edda ase Negative Urine RBC Urine WBC Ur Squamous Epith Cells Amorphous Sediment Urine Bacteria Urine Mucus U Random Total Pro tein Urine Creatinine Protein/Creatinin Ratio Vitals: Last Vital Signs Temp 97.1 F L 11/29/20 10:08 Pulse 112 H 11/29/20 11:21 Resp 17 11/29/20 10:10 BP 156/89 11/29/20 11:21 Pulse Ox 96 11/29/20 11:21 TS Medications Medications Home Medications prenat.vits,zenon,[id number]-[id number] 1 tab PO DAILY 09/06/19 [History Confirmed 11/28/20] insulin syringe,safetyneedle 0.3 mL 30 x 12/27 #500 each 06/15/20 [Rx Confirmed 11/29/20] meclizine 12.5 mg chewable tablet 12.5 mg PO ONCE PRN 06/15/20 [History Confirmed 11/28/20] insulin detemir U-100 100 unit/mL subcutaneous solution 80 unit SUBCUT BID #5 vial 10/05/20 [Rx Confirmed 11/28/20] buspirone 5 mg tablet 5 mg PO BID #60 tab 11/19/20 [Rx Confirmed 11/28/20] hydroxyzine pamoate 25 mg capsule 25 mg PO QID PRN #60 cap 11/19/20 [Rx Confirmed 11/28/20] Novolog U-100 Insulin aspart See Rx Instructions .ROUTE .COMPLEX 11/28/20 [History Confirmed 11/28/20] Active Medications Buspirone HCl (Buspirone 10 Mg Tablet) 5 mg PO BID CORRIE Last Admin: 11/28/20 22:01 Dose: 5 mg Documented by: Calcium Gluconate (Calcium Gluconate 0.1 Gm/Ml 10% Sdv 10ml) 1 gm IVP ONCE PRN PRN Reason: Reversal of Magnesium Sulfate Hydroxyzine Pamoate (Hydroxyzine 25 Mg Capsule) 25 - 50 mg PO QID PRN PRN Reason: ANXIETY Last Admin: 11/29/20 07:23 Dose: 25 mg Documented by: Dextrose/Sodium Chloride (Dextrose 5%-Sod Chloride 0.45%) 1,000 mls @ 125 mls/hr IV .Q8H [facility] Last Infusion: 11/29/20 10:11 Dose: 75 mls/hr Documented by: Dextrose/Lactated Ringer's (Dextrose 5%-Lactated Ringers) 1,000 mls @ 125 mls/hr IV .Q8H [facility] Last Admin: 11/29/20 10:12 Dose: Not Given Documented by: Magnesium Sulfate (Magnesium Sulfate Premix) 20 gm in 500 mls @ 50 mls/hr IV .Q10H [facility] Last Admin: 11/29/20 10:05 Dose: 50 mls/hr Documented by: Discharge Plan Discharge Patient Disposition: Xfer Other Condition: Stable Prescriptions: No Action meclizine 12.5 mg tablet,chewable 12.5 mg PO ONCE PRN (Reason: Vertigo) RF: 0 (DME) insulin syringe,safetyneedle 0.3 mL 30 x 5/16 syringe See Rx Instructions .ROUTE .MEDSUPPLY Qty: 500 RF: 2 buspirone 5 mg tablet 5 mg PO BID Qty: 60 RF: 5 hydroxyzine pamoate [Vistaril] 25 mg capsule 25 mg PO QID PRN (Reason: Menal disorder affecting ) Qty: 60 RF: 2 Levemir U-100 Insulin 100 unit/mL solution 80 unit SUBCUT BID Qty: 5 RF: 8 Novolog U-100 Insulin aspart 100 unit/mL solution See Rx Instructions .ROUTE .COMPLEX RF: 0 prenat.vits,zenon,[id number] Tablet 1 tab PO DAILY RF: 0 Discharge Orders: Transfer Out of Facility (Order); Ordered 11/29/20 Ordered By: Kee Willi Transfer Attestations Time Spent in Transfer Care*: less than 30 min Quality Metrics Clinical Quality Measures: During this hospital stay, did patient experience: None Coding Level of Care Code 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
== END 2020-11-29 11:50 | disposition intermediate care facility (04) ==
LOC: OBGYN 11-29 11:34
PROVIDERS: Admitting Provider Obstetrics & Gynecology; PCP Registered Nurse; Visit Provider Obstetrics & Gynecology
DX: O60.03 Preterm labor without delivery, third trimester (principal); O10.013 Pre-existing essential hypertension complicating pregnancy, third trimester; O24.113 Pre-existing type 2 diabetes mellitus, in pregnancy, third trimester; O34.211 Maternal care for low transverse scar from previous cesarean delivery; O99.343 Other mental disorders complicating pregnancy, third trimester; O99.213 Obesity complicating pregnancy, third trimester; Z3A.30 30 weeks gestation of pregnancy
CPT/HCPCS: 36415; 36416; 51702; 59025; 80048; 80053; 81001; 81003; 82570; 82962; 84156; 84550; 85025; 87086; 96372; 99211; G0378; J0702; J1815; J2270; J3475; J7030; J7799

== ENCOUNTER → 2021-01-29 09:05 | Outpatient (BNVA) | payer BC, MEDICAID, SELFPAY | PROVIDERS: PCP Registered Nurse; Visit Provider Obstetrics & Gynecology | DX: O09.893 Supervision of other high risk pregnancies, third trimester (principal); O24.113 Pre-existing type 2 diabetes mellitus, in pregnancy, third trimester; Z3A.00 Weeks of gestation of pregnancy not specified | CPT/HCPCS: 82947 ==

== ENCOUNTER → 2021-02-05 15:16 | Outpatient (BNVA) | payer BC, MEDICAID, SELFPAY | PROVIDERS: PCP Registered Nurse; Visit Provider Nurse Practitioner Women's Health | DX: Z39.2 Encounter for routine postpartum follow-up (principal); I10 Essential (primary) hypertension; E11.9 Type 2 diabetes mellitus without complications | CPT/HCPCS: 88175 ==

== ENCOUNTER → 2021-02-16 14:54 | Outpatient (BNVA) | payer BC, MEDICAID, SELFPAY | PROVIDERS: PCP Registered Nurse; Visit Provider Registered Nurse | DX: F32.9 Major depressive disorder, single episode, unspecified (principal); E11.9 Type 2 diabetes mellitus without complications; Z79.899 Other long term (current) drug therapy | CPT/HCPCS: 80053; 83036; 85007; 85027 ==

== ENCOUNTER → 2021-03-17 11:11 | Outpatient (BNVA) | payer BC, MEDICAID, SELFPAY | PROVIDERS: PCP Registered Nurse; Visit Provider Registered Nurse | DX: E11.9 Type 2 diabetes mellitus without complications (principal); O86.02 Infection of obstetric surgical wound, deep incisional site | CPT/HCPCS: 87070; 87075; 87205 ==

== ENCOUNTER → 2021-05-19 09:39 | Outpatient (BNVA) | payer BC, MEDICAID, SELFPAY | PROVIDERS: PCP Registered Nurse; Visit Provider Registered Nurse | DX: E11.9 Type 2 diabetes mellitus without complications (principal); F98.8 Other specified behavioral and emotional disorders with onset usually occurring in childhood and adolescence; I10 Essential (primary) hypertension | CPT/HCPCS: 80053; 83036 ==

== ENCOUNTER → 2022-03-28 11:10 | Outpatient (BNVA) | payer BC, MEDICAID, SELFPAY | PROVIDERS: PCP Registered Nurse; Visit Provider Registered Nurse | DX: F32.9 Major depressive disorder, single episode, unspecified (principal); E11.9 Type 2 diabetes mellitus without complications; E53.8 Deficiency of other specified B group vitamins; I10 Essential (primary) hypertension; F41.9 Anxiety disorder, unspecified | CPT/HCPCS: 82607; 83036; 84443; 85025 ==

== ENCOUNTER → 2023-03-28 09:16 | Outpatient (BNVA) | payer BC, MEDICAID, SELFPAY | PROVIDERS: PCP Registered Nurse; Visit Provider Registered Nurse | DX: F41.9 Anxiety disorder, unspecified (principal); E78.2 Mixed hyperlipidemia; I10 Essential (primary) hypertension; E11.9 Type 2 diabetes mellitus without complications | CPT/HCPCS: 80053; 80061; 83036; 85025 ==

== ENCOUNTER → 2023-12-18 15:29 | Outpatient (BNVA) | payer BC, MEDICAID, SELFPAY | PROVIDERS: PCP Registered Nurse; Visit Provider Registered Nurse | DX: E66.01 Morbid (severe) obesity due to excess calories (principal); Z68.42 Body mass index [BMI] 45.0-49.9, adult; F41.9 Anxiety disorder, unspecified; E11.9 Type 2 diabetes mellitus without complications | CPT/HCPCS: 80053; 80061; 81000; 82607; 83036; 83721; 84403; 84443; 85025 ==